=== PATIENT | male | born 1990 | race Caucasian/White ===

== ENCOUNTER 2017-01-07 13:46 | Emergency (ER) | payer SELFPAY ==
[2017-01-07] MEDS ORDERED: Ibuprofen TAB* 800 MG PO ONE (14:13)
--- NOTE | 2017-01-07 14:28 | ED ---
Upper Extremity Pain - HPI Summary HPI Summary: 26 male presents accompanied by mother with complaints of right middle finger pain after pinching it between two 200 pound barrels of oil yesterday at work. Patient took 800mg of Advil yesterday with some relief and decrease in swelling , however patient still states it is painful when he bumps or uses it. Admits to bruising and swelling. No open wounds, lacerations or puncture wounds. Denies any pain or injury to rest of hand and finger. Denies numbness/tingling. 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 Was at work before arrival however decided it was too painful and he needed to be checked out. - History of Current Complaint Chief Complaint: EDExtremityUpper Stated Complaint: RT FINGER INJURY Time Seen by Provider: 01/07/17 13:59 Hx Obtained From: Patient Mechanism Of Injury: Direct Blow - pinched between 2 barrels Onset/Duration: Started Days Ago, Traumatic, Still Present, Worse Since Timing: Intermittent - when touching, bumping or using finger Severity Initially: Mild Severity Currently: None Pain Location: Finger - right middle Character: Aching, Throbbing Aggravating Factor(s): Movement Alleviating Factor(s): Rest, OTC Meds Associated Signs & Symptoms: Positive: Swelling, Redness, Bruising Related History: Occupational Injury, Dominant Hand Right - Allergies/Home Medications Allergies/Adverse Reactions: Allergies Allergy/AdvReac Type Severity Reaction Status Date / Time Bacitracin [From Neosporin] Allergy Hives Verified 01/07/17 13:55 Neomycin [From Neosporin] Allergy Hives Verified 01/07/17 13:55 Penicillins Allergy Hives Verified 01/07/17 13:54 Polymyxin B [From Neosporin] Allergy Hives Verified 01/07/17 13:55 PMH/Surg Hx/FS Hx/Imm Hx Endocrine/Hematology History: Denies: Hx Diabetes Cardiovascular History: Denies: Hx Hypertension Respiratory History: Denies: Hx Asthma - Surgical History Surgery Procedure, Year, and Place: none - Immunization History Date of Tetanus Vaccine: unknown Immunizations Up to Date: Yes Infectious Disease History: No Infectious Disease History: Denies: Traveled Outside the [place] in Last 30 Days - Family History Known Family History: Positive: None - Social History Alcohol Use: None Substance Use Type: Reports: None Smoking Status (MU): Never Smoked Tobacco Review of Systems Constitutional: Negative Cardiovascular: Negative Respiratory: Negative Positive: Arthralgia, Myalgia, Decreased ROM, Edema - right middle finger Positive: Bruising - right middle finger Neurological: Negative Psychological: Normal All Other Systems Reviewed And Are Negative: Yes Physical Exam Triage Information Reviewed: Yes Vital Signs On Initial Exam: Initial Vitals Temp Pulse Resp BP Pulse Ox 97.5 F 86 20 135/78 99 01/07/17 13:48 01/07/17 13:48 01/07/17 13:48 01/07/17 13:48 01/07/17 13:48 Vital Signs Reviewed: Yes Appearance: Positive: Well-Appearing, No Pain Distress, Well-Nourished Skin: Positive: Warm, Skin Color Reflects Adequate Perfusion - < 2 seconds b/l, Dry, Erythema @ - and eccymosis of tip of right middle digit Head/Face: Positive: Normal Head/Face Inspection Eyes: Positive: Conjunctiva Clear ENT: Positive: Normal ENT inspection, Hearing grossly normal Neck: Positive: Supple, Nontender Respiratory/Lung Sounds: Positive: Clear to Auscultation, Breath Sounds Present Cardiovascular: Positive: Normal, RRR, Pulses are Symmetrical in both Upper and Lower Extremities - 2+ radial pulses b/l Musculoskeletal: Positive: Normal, Strength/ROM Intact, Pain @ - tip of right middle finger with palpation, Edema Right - middle finger, mild when compared to left middle finger, Other - subungual hematoma noted seen under right middle finger nail <40%, no creptius, obvious deformity or step off. skin and sensation intact. no damage/disruption to nail, no avulsion, intact. normal neurovascular exam.. Negative: Limited @, Interruption @ Neurological: Positive: Normal, Sensory/Motor Intact, Alert, Oriented to Person Place, Time, CN Intact II-III, Reflexes Intact, NV Bundle Intact Distally, Normal Gait Psychiatric: Positive: Normal, Affect/Mood Appropriate - Rudd Coma Scale Coma Scale Total: 15 Diagnostics - Vital Signs Vital Signs Temp Pulse Resp BP Pulse Ox 01/07/17 13:48 97.5 F 86 20 135/78 99 - Laboratory Lab Statement: Any lab studies that have been ordered have been reviewed, and results considered in the medical decision making process. - Radiology right middle finger Xray Interpretation: No Acute Changes - No cortical disruption or suspicious trabecular irregularity to suggest fracture. Normal articular alignment. Soft tissue swelling greatest distally. Negative for subcutaneous emphysema. Radiology Interpretation Completed By: Radiologist Course/Dx - Course Course Of Treatment: RICE, ibuprofen given at ED and will be prescribed to take at home. Given finger splint to protect from bumping it. nail trepentation not needed due to being less than 50% of nail. Off work for one day due to constantly using his fingers and hands as he is a dragline mechanic. follow up. aware of worsening signs and symptoms. - Diagnoses Differential Diagnosis/HQI/PQRI: Positive: Contusion, Fracture (Closed), Hematoma, Strain, Sprain Provider Diagnoses: Subungual hematoma of finger of right hand Discharge - Discharge Plan Condition: Stable Disposition: HOME Patient Education Materials: Subungual Hematoma (ED) Referrals: Winston LONG,Juan Kim [Primary Care Provider] - Additional Instructions: Take the prescribed ibuprofen to help with pain and inflammation as needed every 6 hours for the next few days. Take with food to avoid upsetting your stomach. Wear protective finger splint to avoid bumping and hitting your finger. Rest your finger, elevate and ice to help with swelling. If symptoms worsen such as increase in swelling, numbness/tingling, increasing pain and unable to move your finger please seek medical attention promptly. Follow up with primary care provider to make sure proper healing.
--- NOTE | 2017-01-07 15:12 | RAD ---
Indication: Pain and swelling following crush injury to the RIGHT third finger. Distal phalanx region pain and blue discoloration of the nail bed. Comparison: None. Technique: 3 views RIGHT third finger REPORT AND IMPRESSION: No cortical disruption or suspicious trabecular irregularity to suggest fracture. Normal articular alignment. Soft tissue swelling greatest distally. Negative for subcutaneous emphysema.
[2017-01-07 15:25] VITALS: BP 128/74
== END 2017-01-07 15:34 | disposition home or self-care (01) ==
LOC: ED 13:46
DX: S60.221A Contusion of right hand, initial encounter (principal); W23.0XXA Caught, crushed, jammed, or pinched between moving objects, initial encounter; Y92.9 Unspecified place or not applicable; Z88.0 Allergy status to penicillin
CPT/HCPCS: 73140; 99282; A9270-GY